=== PATIENT | female | born 1945 | race Caucasian/White ===

== ENCOUNTER 2017-04-13 23:53 | Inpatient (IN) | payer MEDICARE ==
[~2017-04-13] VITALS: Ht 170.2 cm; Wt 72.1 kg
--- NOTE | 2017-04-14 00:15 | NUR ---
GPS LEVEL GLASS FORMING MACHINE OPERATOR NOTES ADMITTED THIS 71 YEAR OLD MALE ON 5150 HOLD FOR DANGER TO SELF. PER HOLD PATIENT IS HOPELESS AND DEPRESSED, WITH SUICIDAL IDEATIONS. PATIENT ATTEMPTED SUICIDE BY OVERDOSING ON ALCOHOL AND RUBBING ALCOHOL. UPON FACE TO FACE PATIENT WAS ALERT AND ORIENTED X 2-3. APPEARS TO BE COOPERATIVE AND PLEASANT. STATES THAT SHE FEELS ANXIOUS AND WOULD WANT ANTI ANXIETY AND SLEEPING MEDS. PATIENT SLEPT ON HER OWN A FEW MINS AFTER. VITAL SIGNS CHECKED AND RECORDED. AFEBRILE. ASSESSMENT OF BODY SYSTEMS COMPLETED. SKIN AND BODY CHECK DONE. SKIN IS INTACT. BELONGINGS CHECKED FOR CONTRABAND ITEMS, NONE FOUND WITH PATIENT. MED. RECON DONE. PATIENT ADMITTED UNDER THE CARE OF DR. BAKER FOR PSYCHE AND DR. GARCIA FOR MEDICAL. PATIENT IS HARD OF HEARING. MRSA SWAB DONE. WILL MONITOR FOR SAFETY AND BEHAVIORS.
[2017-04-14] MEDS ORDERED: MAGNESIUM HYDROXIDE 30 ML UDC PO PRN (01:30)
[2017-04-14] MEDS ORDERED: ACETAMINOPHEN 325 MG TABLET PO PRN (01:30)
[2017-04-14] MEDS ORDERED: MAG HYDROX/AL HYDROX/SIMETH 30 ML UDC PO PRN (01:30)
[2017-04-14 04:58] VITALS: BP 154/86
[2017-04-14] MEDS ORDERED: ONDA4TAB11 PO (05:41)
[2017-04-14] MEDS ORDERED: SERT100T PO (05:41)
[2017-04-14] MEDS ORDERED: LISI-603 PO (05:41)
[2017-04-14] MEDS ORDERED: HYDR-548 PO ×2 (05:41)
[2017-04-14] MEDS ORDERED: MIRT15TA7 PO (05:41)
[2017-04-14] MEDS ORDERED: PANT40TA4 PO (05:41)
[2017-04-14] MEDS ORDERED: ONDANSETRON 4 MG TAB.RAPDIS PO PRN (06:00)
[2017-04-14 07:39] LABS: CHOLESTEROL 165 mg/dL (<200); HDL CHOLESTEROL 105 mg/dL (40-60); LDL 52 mg/dL (0-99); TRIGLYCERIDES 107 mg/dL (30-150)
[2017-04-14 07:45] LABS: ALANINE AMINOTRANSFERASE 20 U/L (12-78); ALKALINE PHOSPHATASE 84 U/L (46-116); ASPARTATE AMINOTRANSFERASE 16 U/L (15-37); BILIRUBIN,TOTAL 0.3 mg/dL (0.2-1.0); CALCIUM, SERUM 8.8 mg/dL (8.5-10.1); CARBON DIOXIDE 33 mmol/L (21-32); CHLORIDE 104 mmol/L (98-107); CREATININE 0.8 mg/dL (0.6-1.3); GLUCOSE 101 mg/dL (74-106); POTASSIUM 4.1 mmol/L (3.5-5.1); SODIUM SERUM 141 mmol/L (136-145); UREA NITROGEN, BLOOD 13 mg/dL (7-18)
[2017-04-14 08:00] VITALS: BP 151/82
[2017-04-14] MEDS ORDERED: LEVO75TA7 PO (08:07)
[2017-04-14] MEDS ORDERED: AMIO200T2 PO (08:07)
[2017-04-14] MEDS ORDERED: HYDR25TA4 PO (08:07)
[2017-04-14] MEDS ORDERED: ATOR10TA PO (08:07)
[2017-04-14] MEDS ORDERED: GABA-534 PO (08:07)
[2017-04-14] MEDS: PANTOPRAZOLE 40 MG TABLET.DR PO SCH (08:08)
[2017-04-14] MEDS: LISINOPRIL (20MG) 20 MG TABLET PO SCH (08:12)
--- NOTE | 2017-04-14 08:20 | NUR ---
GPS RN NOTE: RECEIVED PATIENT IN THE ROOM LYING IN BED AWAKE, PATIENT WAS COMPLAINING OF LOWER BACK PAIN 05/15 NORCO 10 MG PO PRN GIVEN ORDER, NO S/S DISTRESS NOTED PT DENIES SI/ HI AT THIS TIME WILL CONTINUE MONITORING FOR SAFETY AND BEHAVIOR Q 15 MIN
[2017-04-14] MEDS: HYDROCODONE/APAP 10/325MG 1 EA TABLET PO PRN ×3 (08:32→21:40)
[2017-04-14] MEDS: LORAZEPAM 0.5 MG TABLET PO PRN ×3 (09:54→22:32)
--- NOTE | 2017-04-14 14:40 | NUR ---
GPS RN NOTE: PATIENT COMPLAINING OF LOWER BACK PAIN NORCO 10- 325 MG PO PRN WAS GIVEN PER ORDER WILL CONTINUE MONITORING FOR SAFETY AND BEHAVIOR Q 15 MIN
[2017-04-14 16:00] VITALS: BP 137/87
--- NOTE | 2017-04-14 16:23 | NUR ---
Initial discharge plan: Pt. reside at a [facility] [address] [facility] [address] and would like to return, unless, doctor recommends a longterm facility. SW will follow up with , and Tahira Villanueva [phone] from the facility and will arrange for a safe and proper discharge.
[2017-04-14 20:00] VITALS: BP 125/75
[2017-04-14] MEDS: MIRTAZAPINE 15 MG TABLET PO SCH (21:40)
[2017-04-15] MEDS: HYDROCODONE/APAP 10/325MG 1 EA TABLET PO PRN ×3 (06:01→19:03)
[2017-04-15 08:00] VITALS: BP 129/70
[2017-04-15] MEDS: PANTOPRAZOLE 40 MG TABLET.DR PO SCH (08:30)
[2017-04-15] MEDS: LEVOTHYROXINE SODIUM 75 MCG TABLET PO SCH (08:30)
[2017-04-15] MEDS: LISINOPRIL (20MG) 20 MG TABLET PO SCH (08:32)
[2017-04-15] MEDS: ATORVASTATIN 10 MG TABLET PO SCH (08:34)
[2017-04-15] MEDS: AMIODARONE HCL 200 MG TABLET PO SCH (08:34)
[2017-04-15] MEDS: SERTRALINE HCL 50 MG TABLET PO SCH (08:37)
[2017-04-15] MEDS: GABAPENTIN 300 MG CAPSULE PO SCH ×3 (08:42→17:05)
[2017-04-15] MEDS: LORAZEPAM 0.5 MG TABLET PO PRN ×2 (13:41→19:55)
[2017-04-15 16:00] VITALS: BP 136/79
--- NOTE | 2017-04-15 17:01 | NUR ---
SW spoke with pt today regarding pt's alcohol abuse. Pt. agrees that she is an alcoholic but refuses to be placed in a facility. SW discussed an option to go to an inpatient substance abuse treatment center, but pt. refuses. Pt. wants to discharge back to her room and board.
[2017-04-15] MEDS ORDERED: GABAPENTIN 300 MG CAPSULE PO SCH (18:17)
[2017-04-15 20:33] VITALS: BP 123/80
[2017-04-15] MEDS: MIRTAZAPINE 15 MG TABLET PO SCH (21:03)
[2017-04-15] MEDS: TEMAZEPAM 7.5 MG CAPSULE PO PRN (21:03)
[2017-04-16] MEDS: HYDROCODONE/APAP 10/325MG 1 EA TABLET PO PRN ×3 (05:18→17:50)
[2017-04-16 08:00] VITALS: BP 141/92
[2017-04-16] MEDS: SERTRALINE HCL 50 MG TABLET PO SCH (08:10)
[2017-04-16] MEDS: LISINOPRIL (20MG) 20 MG TABLET PO SCH (08:10)
[2017-04-16] MEDS: GABAPENTIN 300 MG CAPSULE PO SCH ×3 (08:10→17:01)
[2017-04-16] MEDS: ATORVASTATIN 10 MG TABLET PO SCH (08:10)
[2017-04-16] MEDS: LEVOTHYROXINE SODIUM 75 MCG TABLET PO SCH (08:10)
[2017-04-16] MEDS: PANTOPRAZOLE 40 MG TABLET.DR PO SCH (08:10)
[2017-04-16] MEDS: AMIODARONE HCL 200 MG TABLET PO SCH (08:11)
[2017-04-16] MEDS: LORAZEPAM 0.5 MG TABLET PO PRN ×2 (14:18→20:11)
[2017-04-16 16:00] VITALS: BP 115/66
--- NOTE | 2017-04-16 19:30 | NUR ---
PATIENT IS DISPLAYING NO S/S OF APPARENT DISTRESS AT THIS TIME. PATIENT BREATHING IS UNLABORED WITH EQUAL RISE AND FALL OF THE CHEST. PATIENT IS ALERT AND ORIENTED X 2 - 3 ON ROOM AIR WITH A SPO2 97%. PATIENT COMPLAINT WITH MEDICATION, ANXIOUS, DEPRESSED, COOPERATIVE, NEEDY, MED SEEKING, AND NEEDS REORIENTATION. PATIENT DENIES SUICIDE AND HOMICIDAL IDEATIONS AT THIS TIME. PATIENT ASSISTED WITH TURNING AND REPOSITIONING Q2HR AND PRN FOR COMFORT AND CIRCULATION. PATIENT HAS NO NEEDS AT THIS TIME. PATIENT EDUCATED ON THE USE OF THE CALL BYRNE. PATIENT BED SIDE RAILS UP X2 FOR SAFETY, BED IS LOCKED AND LOW WILL CONTINUE TO MONITOR AND MAINTAIN SAFETY.
[2017-04-16 20:00] VITALS: BP 134/67
--- NOTE | 2017-04-16 20:11 | NUR ---
GPS RN NOTE, PATIENT HAS A COMPLAINT OF FEELING ANXIOUS AND WOULD LIKE MEDICATION TO HELP CALM HER DOWN. PATIENT VITAL SIGNS ARE STABLE. GAVE ATIVAN 0.5MG PO Q6HR PRN ORDERED. WILL REASSESS FOR ANXIETY AND I WILL CONTINUE TO MONITOR THIS PATIENT.
[2017-04-16] MEDS: TEMAZEPAM 7.5 MG CAPSULE PO PRN (21:31)
[2017-04-16] MEDS: MIRTAZAPINE 15 MG TABLET PO SCH (21:31)
--- NOTE | 2017-04-16 21:31 | NUR ---
GPS RN NOTE, PATIENT HAS A COMPLAINT OF NOT BEING ABLE TO SLEEP AND WOULD LIKE A SLEEPING AID AT THIS TIME. PATIENT VITAL SIGNS ARE STABLE. GAVE RESTORIL 7.5MG PO HS ORDERED. WILL REASSESS FOR INSOMNIA AND I WILL CONTINUE TO MONITOR THIS PATIENT.
[2017-04-17] MEDS: HYDROCODONE/APAP 10/325MG 1 EA TABLET PO PRN ×4 (02:16→21:10)
--- NOTE | 2017-04-17 02:16 | NUR ---
GPS RN NOTE, PATIENT HAS A COMPLAINT OF LOWER BACK PAIN AT 6 OUT 10 ON THE PAIN SCALE AND WOULD LIKE MEDICATION AT THIS TIME. PATIENT VITAL SIGNS ARE STABLE. GAVE NORCO 10-325 1 TAB PO QID ORDERED. WILL REASSESS FOR PAIN AND I WILL CONTINUE TO MONITOR THIS PATIENT.
[2017-04-17] MEDS: PANTOPRAZOLE 40 MG TABLET.DR PO SCH (07:51)
[2017-04-17] MEDS: LEVOTHYROXINE SODIUM 75 MCG TABLET PO SCH (07:51)
[2017-04-17 08:00] VITALS: BP 138/74
[2017-04-17] MEDS: GABAPENTIN 300 MG CAPSULE PO SCH ×3 (08:13→17:12)
[2017-04-17] MEDS: ATORVASTATIN 10 MG TABLET PO SCH (08:14)
[2017-04-17] MEDS: LISINOPRIL (20MG) 20 MG TABLET PO SCH (08:14)
[2017-04-17] MEDS: AMIODARONE HCL 200 MG TABLET PO SCH (08:14)
[2017-04-17] MEDS: SERTRALINE HCL 50 MG TABLET PO SCH (08:14)
--- NOTE | 2017-04-17 08:53 | NUR ---
[id number]: GAVE NORCO 10-325 MG PO DUE TO GENERALIZED PAIN 06/14 AND WILL CONTINUE TO MONITOR FOR EFFECTIVENESS OF MEDICATION
[2017-04-17] MEDS: LORAZEPAM 0.5 MG TABLET PO PRN ×2 (10:57→17:17)
--- NOTE | 2017-04-17 10:57 | NUR ---
[id number]: GAVE ATIVAN 0.5 MG PO DUE TO SEVERE ANXIETY UPON PT REQUEST AND WILL CONTINUE TO MONITOR FOR EFFECTIVENESS OF MEDICATION
--- NOTE | 2017-04-17 15:02 | NUR ---
[id number]: GAVE NORCO 10-325 MG PO DUE TO GENERALIZED PAIN 06/14 AND WILL CONTINUE TO MONITOR FOR EFFECTIVENESS OF MEDICATION.
[2017-04-17 16:00] VITALS: BP 155/87
--- NOTE | 2017-04-17 17:17 | NUR ---
[id number]: GAVE ATIVAN 0.5 MG PO DUE TO SEVERE ANXIETY UPON PT REQUEST AND WILL CONTINUE TO MONITOR FOR EFFECTIVENESS OF MEDICATION
[2017-04-17 19:58] VITALS: BP 130/75
[2017-04-17] MEDS: MIRTAZAPINE 15 MG TABLET PO SCH (21:08)
--- NOTE | 2017-04-17 21:48 | NUR ---
GPS RN NOTE, PATIENT HAS A COMPLAINT OF HAVING 4 LOSE BOWEL MOVEMENTS WITH A SCANT AMOUNT OF BLOOD IN HER STOOL FIRST BM. PATIENT STATES, "I THINK IT HAS TO WITH MY STRESS LEVEL AND CAN I HAVE IMODIUM IT HELPS WHEN THIS HAPPENS". PAGED [facility] AND INFORMED WITH DR SARAH FAGAN OF MY FINDINGS. DR FAGAN ORDERED LOPERAMIDE HCL 2MG PO Q4HR PRN. OMNICE HAS THIS MEDICATION IN IT'S STOCK MEDS. CALLED [employer] SUPERVISOR SCOTTY Nolan AND INFORMED HER THAT MEDICATION IS IN OUR OMNICELL AT WHICH POINT SHE GAVE THE OK TO OVERRIDE LOPERAMIDE HCL 2MG PO Q4HR PRN. ALL ORDERS NOTED AND CARRIED OUT WILL CONTINUE TO MONITOR THIS PATIENT CLOSELY.
[2017-04-17] MEDS ORDERED: LOPERAMIDE HCL (2 MG CAP) 2 MG CAPSULE PO ONE (21:56)
[2017-04-17] MEDS: LOPERAMIDE HCL (2 MG CAP) 2 MG CAPSULE PO PRN (21:57)
[2017-04-17] MEDS: TEMAZEPAM 7.5 MG CAPSULE PO PRN (21:58)
[2017-04-18] MEDS ORDERED: LOPERAMIDE HCL (2 MG CAP) 2 MG CAPSULE PO ONE (03:56)
[2017-04-18] MEDS: LOPERAMIDE HCL (2 MG CAP) 2 MG CAPSULE PO PRN (03:58)
[2017-04-18] MEDS: HYDROCODONE/APAP 10/325MG 1 EA TABLET PO PRN ×3 (03:59→17:10)
--- NOTE | 2017-04-18 04:00 | NUR ---
GPS SN NOTE: PATIENT C/O DIARRHEA AND GENERALIZED BODY PAIN 03/14, NORCO 10-325MG PO AND IMODIUM 2MG PO GIVEN , WILL CONTINUE TO MONITOR [id number] FOR SAFETY
[2017-04-18 08:00] VITALS: BP 140/76
[2017-04-18] MEDS: PANTOPRAZOLE 40 MG TABLET.DR PO SCH (08:52)
[2017-04-18] MEDS: AMIODARONE HCL 200 MG TABLET PO SCH (08:52)
[2017-04-18] MEDS: GABAPENTIN 300 MG CAPSULE PO SCH ×3 (08:52→16:31)
[2017-04-18] MEDS: ATORVASTATIN 10 MG TABLET PO SCH (08:52)
[2017-04-18] MEDS: LEVOTHYROXINE SODIUM 75 MCG TABLET PO SCH (08:52)
[2017-04-18] MEDS: LISINOPRIL (20MG) 20 MG TABLET PO SCH (08:53)
[2017-04-18] MEDS: SERTRALINE HCL 50 MG TABLET PO SCH (09:07)
[2017-04-18] MEDS: LORAZEPAM 0.5 MG TABLET PO PRN ×2 (09:07→16:04)
--- NOTE | 2017-04-18 09:07 | NUR ---
[id number]: GAVE ATIVAN 0.5 MG PO DUE TO SEVERE ANXIETY UPON PT REQUEST AND WILL CONTINUE TO MONITOR FOR EFFECTIVENESS
--- NOTE | 2017-04-18 09:30 | NUR ---
[id number]: PT IS OBSERVED TO BE ANXIOUS, RESTLESS, GUARDED, WITHDRAWN, ISOLATIVE. PT IS ALERT AND ORIENTED X3. PT REQUIRES CONSTANT RE-DIRECTION TO COMPLETE TASK. PT IS ENCOURAGE TO PARTICIPATE IN GROUP ACTIVITY.
--- NOTE | 2017-04-18 10:57 | NUR ---
[id number]: GAVE NORCO 10-325 MG PO DUE TO GENERALIZED PAIN 04/14 UPON PT REQUEST AND WILL CONTINUE TO MONITOR FOR EFFECTIVENESS OF MEDICATION.
--- NOTE | 2017-04-18 12:30 | NUR ---
[id number]: NOTIFIED DR. GARCIA ABOUT PT HAVING A PORT CATHETER ON RT UPPER CHEST AREA. DR. GARCIA STATED, "DON'T FLUSH OR DON'T TOUCH AND LEAVE IS." PT HAS A SITTER 1:1.
[2017-04-18] MEDS ORDERED: SENNOSIDES 8.6 MG TABLET PO PRN (14:00)
[2017-04-18 16:02] VITALS: BP 120/68
--- NOTE | 2017-04-18 16:05 | NUR ---
[id number]: GAVE ATIVAN 0.5 MG PO DUE TO SEVERE ANXIETY UPON PT REQUEST AND WILL CONTINUE TO MONITOR FOR EFFECTIVENESS OF MEDICATION
--- NOTE | 2017-04-18 17:10 | NUR ---
[id number]: GAVE NORCO 10-325 MG PO DUE TO GENERALIZED PAIN 04/14 UPON PT REQUEST AND WILL CONTINUE TO MONITOR FOR EFFECTIVENESS OF MEDICATION
--- NOTE | 2017-04-18 19:28 | NUR ---
GPS/RN NOTE: AWAKE, ALERT, ORIENTED X2-3. NO APPARENT DISTRESS NOTED.
[2017-04-18 19:50] VITALS: BP 118/69
[2017-04-18] MEDS: MIRTAZAPINE 15 MG TABLET PO SCH (21:10)
[2017-04-18] MEDS: TEMAZEPAM 7.5 MG CAPSULE PO PRN ×2 (21:11→22:17)
--- NOTE | 2017-04-18 22:19 | NUR ---
GPS/RN NOTE: C/O INSOMNIA, AMBIEN 5 MG TAB PO GIVEN.
--- NOTE | 2017-04-19 | NUR ---
GPS/RN NOTE: PATIENT C/O ABDOMINAL PAIN, 6/10 ON PAIN SCALE, NORCO 10 MG TAB PO GIVEN.
[2017-04-19] MEDS: HYDROCODONE/APAP 10/325MG 1 EA TABLET PO PRN ×4 (06:10→18:20)
[2017-04-19 06:54] LABS: BASOPHILS % (AUTO) 0.6 % (0.0-2.0); EOSINOPHILS # (AUTO) 0.3 /CMM (0.0-0.7); EOSINOPHILS % (AUTO) 6.1 % (0.0-6.0); HEMATOCRIT 29 % (33-45); HEMOGLOBIN 9.7 g/dL (11.5-14.8); LYMPHOCYTES # (AUTO) 1.5 /CMM (0.8-4.8); LYMPHOCYTES % (AUTO) 35.1 % (20.0-44.0); MEAN CORPUSCULAR HEMOGLOBIN 33 PG (26.0-33.0); MEAN CORPUSCULAR HGB CONC 34 g/dl (31.0-36.0); MEAN CORPUSCULAR VOLUME 99 fL (82-100); MONOCYTES # (AUTO) 0.6 /CMM (0.1-1.30); MONOCYTES % (AUTO) 13.2 % (2.0-12.0); NEUTROPHILS # (AUTO) 1.9 /CMM (1.8-8.9); PLATELET COUNT (AUTO) 158 /CMM (150-450); RDW COEFFICIENT OF VARIATION 14.5 (11.5-15.0); WHITE BLOOD COUNT (AUTO) 4.3 K/uL (4.3-11.0)
[2017-04-19 07:35] LABS: CALCIUM, SERUM 8.9 mg/dL (8.5-10.1); CARBON DIOXIDE 31 mmol/L (21-32); CHLORIDE 107 mmol/L (98-107); CREATININE 0.7 mg/dL (0.6-1.3); GLUCOSE 90 mg/dL (74-106); MAGNESIUM 1.8 mg/dL (1.8-2.4); PHOSPHORUS 5.3 mg/dL (2.5-4.9); POTASSIUM 4.7 mmol/L (3.5-5.1); SODIUM SERUM 144 mmol/L (136-145); UREA NITROGEN, BLOOD 19 mg/dL (7-18)
[2017-04-19] MEDS: LEVOTHYROXINE SODIUM 75 MCG TABLET PO SCH (07:57)
[2017-04-19] MEDS: PANTOPRAZOLE 40 MG TABLET.DR PO SCH (07:57)
[2017-04-19 08:07] VITALS: BP 187/99
[2017-04-19] MEDS: ATORVASTATIN 10 MG TABLET PO SCH (08:09)
[2017-04-19] MEDS: SERTRALINE HCL 50 MG TABLET PO SCH (08:09)
[2017-04-19] MEDS: LORAZEPAM 0.5 MG TABLET PO PRN ×3 (08:10→21:08)
[2017-04-19] MEDS: LISINOPRIL (20MG) 20 MG TABLET PO SCH (08:10)
[2017-04-19] MEDS: AMIODARONE HCL 200 MG TABLET PO SCH (08:10)
[2017-04-19] MEDS: GABAPENTIN 300 MG CAPSULE PO SCH ×3 (08:10→16:04)
--- NOTE | 2017-04-19 08:10 | NUR ---
[id number]: ATIVAN 0.5 MG PO DUE SEVERE ANXIETY UPON PT REQUEST AND WILL CONTINUE TO MONITOR FOR EFFECTIVENESS OF MEDICATION
[2017-04-19] MEDS: NICOTINE PATCH (21MG) 21 MG PATCH.TD24 TD SCH (09:37)
--- NOTE | 2017-04-19 12:10 | NUR ---
[id number]: NOTIFIED DR. POOL ABOUT LAB RESULTS ON 04/19/17: RBC= 2.90, HGB= 9.7, HCT= 29, BUN= 19, MONO%= 13.2, EOS%= 6.1, PHOSPHOROUS= 5.3 NO NEW ORDER GIVEN AT THIS TIME.
--- NOTE | 2017-04-19 12:13 | NUR ---
[id number]: GAVE NORCO 10-325 MG PO DUE TO GENERALIZED PAIN 04/14 UPON PT REQUEST AND WILL CONTINUE TO MONITOR FOR EFFECTIVENESS OF MEDICATION
[2017-04-19 13:00] LABS: IRON, SERUM 58 ug/dl (50-175); TOTAL IRON BINDING CAPACITY 304 ug/dl (250-450)
--- NOTE | 2017-04-19 15:00 | NUR ---
[id number]: GAVE ATIVAN 0.5 MG PO DUE TO SEVER ANXIETY UPON PT REQUEST AND WILL CONTINUE TO MONITOR FOR EFFECTIVENESS OF MEDICATION
[2017-04-19 15:56] VITALS: BP 130/72
--- NOTE | 2017-04-19 18:20 | NUR ---
[id number]: GAVE NORCO 10-325 MG PO DUE TO GENERALIZED PAIN 04/14 UPON PT REQUEST AND WILL CONTINUE TO MONITOR FOR EFFECTIVENESS OF MEDICATION
--- NOTE | 2017-04-19 19:22 | NUR ---
GPS/RN NOTE: GREETED AND ROUNDED PATIENT, NO COMPLAINTS AT THIS TIME. NO APPARENT DISTRESS NOTED.
[2017-04-19 19:33] VITALS: BP 148/80
--- NOTE | 2017-04-19 21:08 | NUR ---
GPS/RN NOTE: C/O FEELING ANXIETY, LORAZEPAM 0.5 MG TAB 1 PO GIVEN.
[2017-04-19] MEDS: MIRTAZAPINE 15 MG TABLET PO SCH (21:10)
[2017-04-19] MEDS: TEMAZEPAM 7.5 MG CAPSULE PO PRN (21:51)
--- NOTE | 2017-04-19 21:52 | NUR ---
GPS/RN NOTE: PATIENT UNABLE TO SLEEP, TEMAZEPAM 7.5 MG CAP PO GIVEN PER REQUEST
[2017-04-20] MEDS: HYDROCODONE/APAP 10/325MG 1 EA TABLET PO PRN ×4 (01:55→20:07)
[2017-04-20] MEDS: LORAZEPAM 0.5 MG TABLET PO PRN ×3 (05:37→22:55)
--- NOTE | 2017-04-20 05:37 | NUR ---
GPS/RN NOTE: PATIENT ASKING FOR ATIVAN, STATED THAT SHE IS ANXIOUS, LORAZEPAM 0.5 MG TAB PO GIVEN.
[2017-04-20] MEDS: PANTOPRAZOLE 40 MG TABLET.DR PO SCH (07:50)
[2017-04-20] MEDS: LISINOPRIL (20MG) 20 MG TABLET PO SCH (07:51)
[2017-04-20] MEDS: LEVOTHYROXINE SODIUM 75 MCG TABLET PO SCH (07:51)
[2017-04-20] MEDS: ATORVASTATIN 10 MG TABLET PO SCH (07:51)
[2017-04-20] MEDS: SERTRALINE HCL 50 MG TABLET PO SCH (07:51)
[2017-04-20] MEDS: AMIODARONE HCL 200 MG TABLET PO SCH (07:52)
[2017-04-20] MEDS: NICOTINE PATCH (21MG) 21 MG PATCH.TD24 TD SCH (07:53)
[2017-04-20] MEDS: GABAPENTIN 300 MG CAPSULE PO SCH ×3 (07:53→18:20)
[2017-04-20 08:00] VITALS: BP 194/113
--- NOTE | 2017-04-20 14:00 | NUR ---
DR. POOL,DR. BAKER IN TO SEE PT.
[2017-04-20 16:13] VITALS: BP 134/74
--- NOTE | 2017-04-20 17:00 | NUR ---
ELEN CATH NEEDLE REMOVED AFTER FLUSHING WITH SALINE.BANDAID APPLIED.
[2017-04-20 19:55] VITALS: BP 111/64
[2017-04-20 19:56] VITALS: BP 111/61
[2017-04-20] MEDS: MIRTAZAPINE 15 MG TABLET PO SCH (20:06)
[2017-04-20] MEDS: TEMAZEPAM 7.5 MG CAPSULE PO PRN (21:20)
[2017-04-21] MEDS: HYDROCODONE/APAP 10/325MG 1 EA TABLET PO PRN ×2 (03:38→10:51)
[2017-04-21 08:00] VITALS: BP 122/75
[2017-04-21] MEDS: NICOTINE PATCH (21MG) 21 MG PATCH.TD24 TD SCH (08:33)
[2017-04-21] MEDS: ATORVASTATIN 10 MG TABLET PO SCH (08:33)
[2017-04-21] MEDS: SERTRALINE HCL 50 MG TABLET PO SCH (08:33)
[2017-04-21] MEDS: GABAPENTIN 300 MG CAPSULE PO SCH (08:33)
[2017-04-21 08:34] VITALS: BP 122/75
[2017-04-21] MEDS: LEVOTHYROXINE SODIUM 75 MCG TABLET PO SCH (08:34)
[2017-04-21] MEDS: PANTOPRAZOLE 40 MG TABLET.DR PO SCH (08:34)
[2017-04-21] MEDS: AMIODARONE HCL 200 MG TABLET PO SCH (08:34)
[2017-04-21] MEDS: LISINOPRIL (20MG) 20 MG TABLET PO SCH (08:34)
[2017-04-21] MEDS: LORAZEPAM 0.5 MG TABLET PO PRN (08:34)
--- NOTE | 2017-04-21 09:35 | NUR ---
DR. BAKER GAVE AN ORDER TO D/C HOLD AND D/C TODAY. PT. WITHOUT DISTRESS, DENIES SUICIDAL AND HOMICIDAL AND TO FOLLOW UP WITH PSYCH AND MEDICAL DOCTORS.
--- NOTE | 2017-04-21 10:49 | NUR ---
Discharge note: discharge back to her [facility] [address] [facility] [address] via [employer] transportation. Her contact, Tahira Villanueva [phone] could not be notified as her mailbox was full. SW attempted 3 times. Pt. is alcoholic and was referred to Alcoholics Anonymous - [facility] [address] on Tuesday04/24/17 AT 8:00 PM. Pt. is also a smoker, and was referred to Nicotine Anonymous- [facility] - [phone] PIN: [id number] on Tuesday at 8:00 PM Pt. will follow up with psychiatrist Dr. Naseem Zapata [address] [place] [address] [phone] within 7 days of discharge. Discharge paperwork has been signed, discharge instructions were provided to the accepting facility. Pt. is alert and oriented x4, denies suicidal/homicidal ideations, denies hallucinations, and has a plan for self care.
[2017-04-21] MEDS: LOPERAMIDE HCL (2 MG CAP) 2 MG CAPSULE PO PRN (10:50)
--- NOTE | 2017-04-21 12:00 | NUR ---
GPS RN: Pt discharged to [facility] [address] [facility] [address] via [employer] [facility] transportation. Patient's condition is stable for discharge, vs stable, patient denies SI/HI/AVH at the time of discharge. All belongings returned to the patient. Pt provided with prescriptions and educational exit care. Pt left the unit accompanied by the [employer] corporate driver and staff member.
== END 2017-04-21 12:00 | disposition home or self-care (01) | DRG 885 ==
LOC: GPS 23:53
PROVIDERS: ADMIT Psychiatry & Neurology Psychiatry; ATTEND Psychiatry & Neurology Psychiatry
DX: F33.2 Major depressive disorder, recurrent severe without psychotic features (principal); F11.20 Opioid dependence, uncomplicated; D63.8 Anemia in other chronic diseases classified elsewhere; K50.90 Crohn's disease, unspecified, without complications; I10 Essential (primary) hypertension; F17.200 Nicotine dependence, unspecified, uncomplicated; D50.9 Iron deficiency anemia, unspecified; E03.9 Hypothyroidism, unspecified; E78.5 Hyperlipidemia, unspecified; F15.90 Other stimulant use, unspecified, uncomplicated; F29 Unspecified psychosis not due to a substance or known physiological condition; G89.29 Other chronic pain; K21.9 Gastro-esophageal reflux disease without esophagitis; Z79.899 Other long term (current) drug therapy; Z96.649 Presence of unspecified artificial hip joint
CPT/HCPCS: 36415; 80048-TC; 80053-TC; 80061-TC; 82272-TC; 83540-TC; 83735-TC; 84100-TC; 85025-TC; 87045-TC; 87081-TC; A6253; Z7610